=== PATIENT | male | born 1990 | race Caucasian/White ===

== ENCOUNTER → 2020-07-20 14:16 | Outpatient (CLI) | payer OTHER, SELFPAY ==
--- NOTE | 2020-07-20 14:21 | US_ITS ---
PROCEDURE: US TESTICULAR CLINICAL INDICATION: Left testicular/scrotal pain and swelling COMPARISON: No exams were available for comparison FINDINGS: The right testicle has an unremarkable appearance. Right testicle measures 4.3 x 2.9 cm. Blood flow is present. No obvious mass. Unremarkable appearing right epididymis. No hydrocele apparent. The left testicle measures 3.2 by 2.4 cm. No testicular mass is apparent. Blood flow is present. Unremarkable appearing left epididymis. No hydrocele is apparent. There is diffuse heterogeneous echogenicity surrounding the left testicle. No increased blood flow evident within this tissue. This is mostly cephalad to the testicle and somewhat posterior. This could be due to large amount of fat within an inguinal hernia. Other etiologies such as infiltrating tumor from the spermatic cord is not excluded. Suggest CT of the pelvis with both IV and oral contrast for further evaluation. IMPRESSION: 1. No evidence of intra testicular mass or hydrocele. There is bilateral testicular blood flow. 2. Diffuse heterogeneous a colic tissue is along the superior and posterior aspect of the left testicle possibly due to fat from a inguinal hernia. Cannot exclude tumor within the scrotum. Suggest abdomen CT with IV and oral contrast for further evaluation Dictated by: Saleem Landeros MD 07/20/2020 17:32 Saleem Landeros MD in [place] 07/20/2020 17:32
== END ==
PROVIDERS: PCP Urology; Visit Provider Urology
DX: N43.3 Hydrocele, unspecified (principal)
CPT/HCPCS: 76870

== ENCOUNTER → 2020-08-10 10:22 | Outpatient (CLI) | payer OTHER, SELFPAY ==
--- NOTE | 2020-08-10 10:24 | CT_ITS ---
PROCEDURE: CT PELVIS WO/W CON CLINICAL INDICATION: inguinal hernia COMPARISON: No exams were available for comparison TECHNIQUE: Axial images obtained with sagittal and coronal reformats. All CT scans at the facility use one or more dose reduction, viz: automated exposure control, ma/kV adjustment per patient size (including targeted exams where dose is matched to indication, i.e. head), or iterative reconstruction technique. FINDINGS: Bony pelvis: Unremarkable. No acute fracture or dislocation. Hips:Unremarkable. No acute fracture or dislocation. Sacrum/coccyx: Unremarkable as visualized. No acute fracture. Soft tissues:A moderately large left inguinal hernia containing fat and or mesentery extending down into the left hemiscrotum there is no bowel within the hernia. The mouth of the hernia measures approximately 3.7 cm on the coronal sequence. The visualized portion of the ascending and descending colon unremarkable. The rectum appears normal. The urinary bladder is moderately filled with urine and appears normal. The prostate is normal. Other findings: No other pertinent findings IMPRESSION: Large left inguinal hernia containing basically fat only Dictated by: Dr. Fadi Leavitt MD 08/10/2020 12:25 Dr. Fadi Leavitt MD in [place] 08/10/2020 12:25
== END ==
PROVIDERS: PCP Urology; Visit Provider Urology
DX: K40.90 Unilateral inguinal hernia, without obstruction or gangrene, not specified as recurrent (principal)
CPT/HCPCS: 72194; Q9967

== ENCOUNTER → 2020-08-27 11:44 | Outpatient (CLI) | payer OTHER, SELFPAY ==
[2020-08-27 12:42] LABS: Basophils # 0.1 K/mm3 (0-0.2); Basophils % 1.1 % (0.1-2.0); Eosinophils # 0.2 K/mm3 (0.0-0.4); Eosinophils % 2.3 % (0.1-12.0); Hematocrit 48.1 % (42.0-52.0); Hemoglobin 16.1 g/dL (14.1-18.0); Lymphocytes # 1.9 K/mm3 (0.7-4.5); Lymphocytes % 26.7 % (10-50); Mean Corpuscular HGB Conc 33.5 g/dL (31.8-35.4); Mean Corpuscular Hemoglobin 29.6 pg (27.0-31.2); Mean Corpuscular Volume 88.4 fl (80-94); Mean Platelet Volume 8.5 fl (7.4-10.4); Monocytes # 0.5 K/mm3 (0.1-1.0); Monocytes % 7.6 % (1.7-9.3); Neutrophils # 4.4 K/mm3 (1.8-7.8); Neutrophils % 62.3 % (37.0-80.0); Platelet Count 222 K/mm3 (142-424); Red Blood Count 5.43 M/mm3 (4.60-6.20); Red Cell Distribution Width 13.2 % (11.5-17.5); White Blood Count 7.1 K/mm3 (4.8-10.8)
[2020-08-27 13:56] LABS: Anion Gap 13.8 mEq/L (5-15); Blood Urea Nitrogen 13 mg/dl (9-20); Calcium 9.4 mg/dl (8.4-10.2); Carbon Dioxide 27 mmol/L (22.0-30.0); Chloride 107 mmol/L (98-107); Estimated Glomerular Filt Rate 98 ml/min (>60); GFR (African American) 119 ML/MIN (>60); Glucose 100 mg/dl (74-100); Potassium 4.8 mmoL/L (3.5-5.1); Sodium 143 mmol/L (136-145)
== END ==
PROVIDERS: PCP Nurse Practitioner; Visit Provider Surgery
DX: Z01.812 Encounter for preprocedural laboratory examination (principal); Z20.822 Contact with and (suspected) exposure to COVID-19; K45.8 Other specified abdominal hernia without obstruction or gangrene
CPT/HCPCS: 80048; 85025; U0003

== ENCOUNTER 2020-08-30 08:35 | Day surgery (SDC) | payer OTHER, SELFPAY ==
[2020-08-24 16:09] VITALS: BMI 25.7
[2020-08-30] VITALS (12 sets, daily range): BP systolic 115–129; BP diastolic 56–78; PULSE 64–72; RESP 14–18; TEMP 36.4–42.7; O2SAT 91–98
--- NOTE | 2020-08-30 09:54 | HMH.ANESCL ---
[facility] Anesthesia Checklist - Patient Identification Patient Identification: Arm Band - Structural Data Admitted From: Home Planned Operative Procedure/s: Left Inguinal Hernia Repair Consent for Planned Operative Procedure(s) Verified: Yes Verified Documents: Surgical Consent, History and Physical - NPO Status Verified Time NPO: 00:00 - Additional verifications Anesthesia Reactions: Yes ( TROUBLE COMING OUT OF ANESTHESIA ) Hx Blood Transfusions: No Blood Transfusion Reaction: No - Airway Assessment C-Spine Mobility Assessed: Yes (mp2) TMJ Mobility Assessed: Yes Dentition: Good Dentition - Neurological Assessment Level of Consciousness: Awake, Alert - Anesthesia Plan Anesthesia Risk discussed: Yes Anesthesia Plan: Verified ASA Class: II Anesthesia Type: General [facility] History I have reviewed the patient's past medical history: Yes Medical History: Denies:: Cancer, Diabetes Mellitus Type 1, Diabetes Mellitus Type 2, Internal Pacemaker, MRSA, Seizures *Have you ever received a pneumonia vaccine?: No *Have you received a flu vaccine this season?: No Other Medical History: Reports: Arthritis. Denies: Blood Transfusion Reaction Anesthesia experience/problems:: nac Laterality Cases: Bilateral: Tonsillectomy Other Surgeries: No: Pacemaker Amputation: No Fractures: No - *Social History Last grade of school completed: 7th or 8th Smoking Status: Current every day smoker Tobacco Type: cigarettes # Packs/Day (cigarettes): 1 Alcohol Intake: current Alcohol Intake Frequency:: a few times a month Substance Use Type: denies use *Occupational Status:: unemployed Housing: house Household Members: family *Travel in the last 8 weeks: None Family Hx:: Diabetes, Stroke
--- NOTE | 2020-08-30 11:19 | HMH.OPNOTE ---
Date of procedure: 08/30/20 Pre-op Diagnosis:: Large left inguinal hernia Post-op Diagnosis:: Same Procedure performed:: Open repair of large indirect left inguinal hernia with placement of extra-large Bard prefix mesh plug Surgeon:: Richard Tovar MD SOCIAL SERVICES DIRECTOR:: Tiago Hardy Anesthesia: GETJasen Estimated blood loss (mL): 25 Clinical Note:: Patient is a 29-year-old male from [facility] referred by Dr. Perez for left inguinal hernia. Patient was a self-referral to see Dr. Perez for left scrotal swelling. He underwent ultrasound of the scrotum which revealed no evidence of any hydrocele. It was recommended he have a CT scan which was performed which revealed a large left inguinal hernia containing fat. Patient states that he has had this since he was 7 years old. It has increased in size. He has some discomfort. Of note, he previously underwent right inguinal hernia repair when he was [age] years old. He has no primary care physician. Patient was seen in the office and found to have very large left inguinal hernia. Options were discussed. He wished to pursue open repair. Operative findings:: Patient had a very large indirect hernia centrally resembling a communicating hydrocele Operative note:: Patient was taken to the operating room. He was positioned in supine position. General anesthesia was induced via endotracheal tube. Gracia catheter was placed. Lower abdomen and scrotal area were prepped and draped in the standard surgical fashion. Oblique incision was made in the left inguinal area superior to landmarks identifying the inguinal ligament. Dissection was carried down through subcutaneous tissues and Kayli's fascia using electrocautery. External oblique muscle was cleaned free of extraneous tissues. The external Bleich muscle was opened along the length of its fibers. The inguinal nerve was identified and preserved. Cord structures were dissected free from the floor the inguinal canal and encircled with a Jag drain. Prolonged dissection was carried out. He had such an extended hernia sac to the testicle that essentially resembled almost a communicating hydrocele. This was able to be dissected free with prolonged effort. It was opened. Was dissected free from the cord structures. The hernia sac was highly ligated with a 2-0 Vicryl pursestring. Extraneous peritoneum of the hernia sac was excised and sent off as specimen. An extra-large Bard prefix mesh plug was inserted into the region of the internal ring laterally at the site of the hernia. This was secured with several interrupted 2-0 Vicryl sutures to the shelving edge of the inguinal ligament and to the transversalis muscle fascia. Onlay mesh was then sewn into position of the inguinal floor securing it to Robin's ligament and the shelving edge of the inguinal ligament with a running 2-0 PDS suture. It was secured superomedially to the fascia with several interrupted 2-0 PDS horizontal mattress sutures. The 2 tails of the mesh were secured to 1 another with a couple of interrupted 2-0 PDS to reconstruct the internal ring. The cord structures and ilioinguinal nerve were then returned to normal anatomic position. Local anesthetic was infiltrated deeply and then into the subcutaneous tissues as well as for an inguinal nerve block. Irrigation was performed. There appeared to be good hemostasis. External Bleich muscle was closed over the cord structures with a running 2-0 Vicryl. Kayli's fascia was closed with running 2-0 Vicryl. Skin was closed with 3-0 strata fix in a running subcuticular fashion. Clean dry sterile dressing was applied. Condition: stable Disposition: PACU Specimens:: Hernia sac Complications:: None immediately apparent
--- NOTE | 2020-08-30 11:21 | P.PN_ITS ---
[facility] Anesthesia Record Part I Intake, IV Amount: 1,300 Estimated blood loss (mL): 10 Urine output (mL): 400 Blood Pressure: 129/56 SaO2: 91 Pulse Rate: 67 Respiratory Rate: 16 Temperature: 99 F Patient is:: Drowsy, Stable Stable to PACU at:: 11:20
[2020-08-30 12:56] LABS: Microscopic,Cath URINE MICROSCOPIC (MICROSCOPIC)
[2020-08-30 13:00] LABS: Appearance,Urine/Cath CLEAR (Clear); Bilirubin,Cath Negative (Negative); Blood, Urine/Cath Negative (Negative); Color,Urine/Cath YELLOW (Yellow); Glucose,Urine/Cath (UA) Negative (Negative); Ketones,Urine/Cath Negative (Negative); Leukocyte Esterase,Cath Negative (Negative); Nitrate,Cath Negative (Negative); Protein,Urine/Cath Negative (Negative); Specific Gravity, Urine/Cath 1.025 (1.005-1.030); Urobilinogen,Cath 0.2 EU/dl (0.2)
--- NOTE | 2020-08-30 17:46 | HMH.ANESII ---
[facility] Anesthesia Record Part II Discharge Time: 11:52 Destination: Surgical Day Care (OP Surgery) PACU nurse assessment reviewed?: Yes Patient Condition:: Good Anesthesia Complications:: None Swallowing reflex intact?: Yes Cyanosis?: No Blood Pressure: 119/68 Pulse Rate: 64 Temperature: 98 F Mental Status: Alert & Oriented Pain level:: 0 Nausea and/or vomitting:: None Intake, IV Amount: 0
== END 2020-08-30 12:25 | disposition home or self-care (01) ==
LOC: OR 08:36
PROVIDERS: PCP Nurse Practitioner; Visit Provider Surgery
PROC: (CPT 49505; principal; 2020-08-30 11:00)
DX: K40.90 Unilateral inguinal hernia, without obstruction or gangrene, not specified as recurrent (principal); M19.90 Unspecified osteoarthritis, unspecified site; Z72.0 Tobacco use; Z83.3 Family history of diabetes mellitus; Z82.3 Family history of stroke; Z88.5 Allergy status to narcotic agent
CPT/HCPCS: 49505; 81001; 96374; J2405; J2710

== ENCOUNTER → 2020-10-18 13:47 | Outpatient (CLI) | payer OTHER, SELFPAY ==
--- NOTE | 2020-10-18 13:47 | US_ITS ---
PROCEDURE: US TESTICULAR CLINICAL INDICATION: Testicular swelling COMPARISON: US US TESTICULAR from 07/20/2020 FINDINGS: Right testicle is 4.7 x 1.9 x 2.5 cm. No mass, hydrocele, or spermatocele evident on the right. There is blood flow within the right testicle. Left testicle is 3 x 2 x 2.6 cm with blood flow and no obvious testicular mass. There is a complex hydrocele with multiple septations. The hydrocele measures approximately 7 x 6 cm. IMPRESSION: Large complex left hydrocele with internal septations. Dictated by: Saleem Landeros MD 10/18/2020 17:25 Saleem Landeros MD in [place] 10/18/2020 17:25
== END ==
LOC: RAD 13:47
PROVIDERS: PCP Nurse Practitioner; Visit Provider Surgery
DX: R60.9 Edema, unspecified (principal)
CPT/HCPCS: 76870

== ENCOUNTER 2020-10-23 09:26 | Emergency (ER) | payer OTHER, SELFPAY ==
[2020-10-23 09:30] VITALS: BP 128/78; PULSE 84; RESP 18; TEMP 36.7; O2SAT 96; BMI 23.6
[2020-10-23 10:05] VITALS: BP 128/78; PULSE 84; RESP 18; TEMP 36.7; O2SAT 96
--- NOTE | 2020-10-23 10:06 | HMH.EDUTC ---
[facility] Disposition Clinical Impression: Back pain with left-sided sciatica Disposition: Home, Self-Care Condition on Discharge: Good Instructions: Low Back Pain, Exercise May Reduce Risk of Low Back Pain, DI for Back Pain With Sciatica Additional Instructions: rest Ice with cold pack for 20 minutes remove may repeat for comfort every hour Ibuprofen every 6 hours as needed for pain or inflammation. If needs something more you can take Tylenol every 4 hours as needed as long as her primary care has told he was okayed for you to take both. If improving any do not need to follow-up you can bring begin exercising 2-3 weeks after injury. Follow-up immediately if new or worsening symptoms or no noticeable improvement over the next 3-5 days. call pcp for appointment Prescriptions: predniSONE [Prednisone 20mg Tab] 20 mg PO BID #10 tab Transmission Status: Pending to [id number] Referrals: Yas Bojorquez MD [Primary Care Provider] - Time of Disposition: 10:09 Medical Decision Making - Dante Inquiry Pt receiving controlled substance: No Orders (Tests/Meds): ED MEDICATIONS Discontinued Medications Generic Name Dose Route Start Last Admin Trade Name Kyle PRN Reason Stop Dose Admin Dexamethasone Sodium Phosphate 4 mg 10/23/20 09:46 10/23/20 09:59 Dexamethasone 4mg/Ml 1ml Vial IM 10/23/20 09:47 4 mg ONCE ONE Administration Ketorolac Tromethamine 15 mg 10/23/20 09:46 10/23/20 09:59 Ketorolac 30mg/Ml Vial IM 10/23/20 09:47 15 mg ONCE ONE Administration [facility] HPI - General Chief complaint: Urgent Treatment Center Stated complaint: back pain, no accident Time Seen by Provider: 10/23/20 10:06 Mode of Arrival: Ambulatory Source of Information: Patient Limitations: No Limitations - History of Present Illness Provider Complaint: 29 yr old male presents for low back pain that radiates down left leg. pt states he was pushing and pulling alot yesterday and woke up this am with the pain. - Related Data Previous Rx's Medication Instructions Recorded predniSONE [Prednisone 20mg 20 mg PO BID #10 tab 10/23/20 Tab] Allergies Allergy/AdvReac Type Severity Reaction Status Date / Time morphine Allergy Mild Verified 10/21/20 13:46 [facility] History - Hepatitis A Screen Attestation statement:: This patient has been screened for Hepatitis A risk factors. I have reviewed the patient's past medical history: Yes Medical History: Denies:: Cancer, Diabetes Mellitus Type 1, Diabetes Mellitus Type 2, Internal Pacemaker, MRSA, Seizures Other Medical History: Reports: Arthritis. Denies: Blood Transfusion Reaction Laterality Cases: Bilateral: Tonsillectomy Other Surgeries: Yes: No Previous Surgery, Hernia Repair. No: Pacemaker Amputation: No Fractures: No - Social History Smoking Status: Current every day smoker Tobacco Type: cigarettes # Packs/Day (cigarettes): 1 Alcohol Intake: current Alcohol Intake Frequency:: a few times a month Substance Use Type: denies use Occupational Status: unemployed Housing: house Household Members: family Family Hx:: Diabetes, Stroke ROS Obtained: Yes Systems reviewed as appropriate & no additional complaints - Constitutional Constitutional: Reports system reviewed and no additional complaints, except as docu, Denies fatigue - Eyes Eyes: Reports system reviewed and no additional complaints, except as docu, Denies blurry vision - ENT Ears, Nose, Mouth, and Throat: Reports system reviewed and no additional complaints, except as docu, Denies bleeding gums - Cardiovascular Cardiovascular: Reports system reviewed and no additional complaints, except as docu, Denies chest pain - Respiratory Respiratory: Reports system reviewed and no additional complaints, except as docu, Denies chest congestion - Gastrointestinal Gastrointestingal: Reports: system reviewed and no additional complaints, except as docu. Denies: abdominal pain - Genitou
== END 2020-10-23 10:08 | disposition home or self-care (01) ==
PROVIDERS: Emergency Provider Nurse Practitioner Family; PCP Nurse Practitioner
DX: M54.42 Lumbago with sciatica, left side (principal); F17.210 Nicotine dependence, cigarettes, uncomplicated
CPT/HCPCS: 96372; 99202; G0463

== ENCOUNTER 2020-11-09 09:42 | Emergency (ER) | payer OTHER, SELFPAY ==
[2020-11-09 09:46] VITALS: BP 136/79; PULSE 74; RESP 16; TEMP 36.7; O2SAT 97; BMI 24.4
--- NOTE | 2020-11-09 10:03 | HMH.EDUTC ---
[facility] Disposition Clinical Impression: Bilateral hand pain, Encounter to obtain excuse from work Disposition: Home, Self-Care Condition on Discharge: Good Instructions: DI for Hand Pain Additional Instructions: Take over the counter Motrin and/or Tylenol as directed on package for pain Soak hands in Warm water and epson salt Get and wear compression gloves as was recommended Follow up with your Family Doctor for further evaluation and examination Return if needed Straight to ER if any life threatening symptoms Referrals: Yas Bojorquez MD [Primary Care Provider] - As needed Forms: Work/School Release Time of Disposition: 10:13 Medical Decision Making - Dante Inquiry Pt receiving controlled substance: No Dante was queried for this patient: No Vital Signs: 11/09/20 09:46 11/09/20 10:45 Temperature 98.1 F 98.1 F Temperature Source Oral Pulse Rate 74 Pulse Rate [Left] 74 Respiratory Rate 16 16 Blood Pressure 136/79 Blood Pressure [Right Arm] 136/79 Blood Pressure Mean [Right Arm] 98 02 Sat by Pulse Oximetry 97 Medical Decision Narrative: Patient reports that he took Ibuprofen earlier and it has helped some Discussed xrays of hands and patient declined Discussed labs to R/O gout and patient declined state that he needs a note for work due to unable to work this morning due to having pain in his hands that was better after taking medication discussed with patient and recommended follow up with PCP if symptoms persist or worsen and get the compression gloves that was recommended by work and return if needed/straight to ER if any life threatening symptoms [facility] HPI - General Stated complaint: hand pain Time Seen by Provider: 11/09/20 10:03 Mode of Arrival: Ambulatory Source of Information: Patient Limitations: No Limitations Description of Symptoms (Recalled from Triage Doc. by RN): pt c/o bilateral hand pain. 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 States that the vibration from the grinder set up operator jig he thinks has flared up arthrititis in his hands and he woke up this morning with pain in his hands and was unable to go to work States that he had to come in and get seen for a work note State that they told him to get compression gloves and that may help but he hasnt got them yet Denies known injury - Related Data Previous Rx's Medication Instructions Recorded predniSONE [Prednisone 20mg 20 mg PO BID #10 tab 10/23/20 Tab] Allergies Allergy/AdvReac Type Severity Reaction Status Date / Time morphine Allergy Mild Verified 10/21/20 13:46 - Worker's Comp Is this a Worker's Comp case?: No [facility] History - Hepatitis A Screen Drug use history?: No High risk sexual behaviors?: No History of sexually transmitted infection?: No Currently employed?: No Childcare worker?: No Do you have indoor plumbing?: Yes Do you have electricity?: Yes Attestation statement:: This patient has been screened for Hepatitis A risk factors. I have reviewed the patient's past medical history: Yes Medical History: Denies:: Cancer, Diabetes Mellitus Type 1, Diabetes Mellitus Type 2, Internal Pacemaker, MRSA, Seizures Other Medical History: Reports: Arthritis. Denies: Blood Transfusion Reaction Laterality Cases: Bilateral: Tonsillectomy Other Surgeries: Yes: No Previous Surgery, Hernia Repair. No: Pacemaker Amputation: No Fractures: No - Social History Smoking Status: Current every day smoker Tobacco Type: cigarettes # Packs/Day (cigarettes): 1 Alcohol Intake: current Alcohol Intake Frequency:: a few times a month Substance Use Type:
[2020-11-09 10:45] VITALS: BP 136/79; PULSE 74; RESP 16; TEMP 36.7
--- NOTE | 2020-11-09 10:46 | PC.NURSE ---
pt states he just needs a work note. pt denies xrays.
== END 2020-11-09 10:45 | disposition home or self-care (01) ==
PROVIDERS: Emergency Provider Nurse Practitioner; PCP Nurse Practitioner
DX: M79.641 Pain in right hand (principal); M79.642 Pain in left hand; Z02.89 Encounter for other administrative examinations; F17.210 Nicotine dependence, cigarettes, uncomplicated
CPT/HCPCS: 99202; G0463

== ENCOUNTER 2021-01-29 16:39 | Emergency (ER) | payer OTHER, SELFPAY ==
[2021-01-29 17:00] VITALS: BP 116/85; PULSE 87; RESP 19; TEMP 37; O2SAT 99; BMI 23.7
--- NOTE | 2021-01-29 17:09 | HMH.EDUTC ---
[facility] Disposition Clinical Impression: Back pain with left-sided sciatica Disposition: Home, Self-Care Condition on Discharge: Good Instructions: Exercise May Reduce Risk of Low Back Pain, Low Back Pain, DI for Low Back Pain Prescriptions: predniSONE [Prednisone 20mg Tab] 20 mg PO BID #10 tab Transmission Status: P[facility] to [facility] Referrals: Yas Bojorquez MD [Primary Care Provider] - Time of Disposition: 17:18 Medical Decision Making - Dante Inquiry Pt receiving controlled substance: No Vital Signs: 01/29/21 17:00 Temperature 98.6 F Temperature Source Oral Pulse Rate [Right Brachial] 87 Respiratory Rate 19 Blood Pressure [Right Arm] 116/85 Blood Pressure Mean [Right Arm] 95 Blood Pressure Source [Right Arm] Automatic Cuff Blood Pressure Position [Right Arm] Sitting 02 Sat by Pulse Oximetry 99 [facility] HPI - General Chief complaint: Urgent Treatment Center Stated complaint: possible sciata nerve Time Seen by Provider: 01/29/21 17:09 Source of Information: Patient Description of Symptoms (Recalled from Triage Doc. by RN): PT STATES HE IS HAVING LEFT SIDE SCIATIC NERVE PAIN THAT IS RADIATIONG DOWN LEFT LEG. STARTED YESTERDAY. HEENT Symptoms (Recalled from RN notes): No Resp Symptoms (Recalled from RN notes): No Skin Symptoms (Recalled from RN notes): No MS Symptoms (Recalled from RN notes): Yes Functional Status (Recalled from RN notes): WNL - History of Present Illness Provider Complaint: 30 yr old male presnets for low back pain with pain radiating down left leg. pt states he has scatica freq but its usually on the rt side. no loss of bowel or bladder - Related Data Previous Rx's Medication Instructions Recorded predniSONE [Prednisone 20mg 20 mg PO BID #10 tab 01/29/21 Tab] Allergies Allergy/AdvReac Type Severity Reaction Status Date / Time morphine Allergy Mild Verified 01/17/21 11:40 - Worker's Comp Is this a Worker's Comp case?: No [facility] History - Hepatitis A Screen Drug use history?: No High risk sexual behaviors?: No History of sexually transmitted infection?: No Currently employed?: No Childcare worker?: No Do you have indoor plumbing?: Yes Do you have electricity?: Yes Attestation statement:: This patient has been screened for Hepatitis A risk factors. I have reviewed the patient's past medical history: Yes Medical History: Reports:: Hiatal Hernia Denies:: Cancer, Diabetes Mellitus Type 1, Diabetes Mellitus Type 2, Internal Pacemaker, MRSA, Seizures Other Medical History: Reports: Arthritis. Denies: Blood Transfusion Reaction Laterality Cases: Bilateral: Tonsillectomy Other Surgeries: Yes: No Previous Surgery, Hernia Repair. No: Pacemaker Amputation: No Fractures: No - Social History Smoking Status: Current every day smoker Tobacco Type: cigarettes # Packs/Day (cigarettes): 1 Alcohol Intake: never Alcohol Intake Frequency:: a few times a month Substance Use Type: denies use Occupational Status: employed Housing: house Household Members: family Family Hx:: Diabetes, Stroke ROS Obtained: Yes Systems reviewed as appropriate & no additional complaints - Constitutional Constitutional: Reports system reviewed and no additional complaints, except as docu, Denies body ache, Denies poor appetite - Eyes Eyes: Reports system reviewed and no additional complaints, except as docu, Denies blurry vision - ENT Ears, Nose, Mouth, and Throat: Reports system reviewed and no additional complaints, except as docu, Denies bleeding gums - Cardiovascular Cardiovascular: Reports system reviewed and no additional complaints, except as docu, Denies chest pain - Respiratory Respiratory: Reports system reviewed and no additional complaints, except as docu, Denies change in phlegm color - Gastrointestinal Gastrointestingal: Reports: system reviewed and no additional complaints, except as docu. Denies: belching - Musculoskeletal Musculoskeletal: Repor
[2021-01-29 17:16] VITALS: BP 116/85; PULSE 87; RESP 19; TEMP 37; O2SAT 99
== END 2021-01-29 17:27 | disposition home or self-care (01) ==
PROVIDERS: Emergency Provider Nurse Practitioner Family; PCP Nurse Practitioner
DX: M54.42 Lumbago with sciatica, left side (principal); F17.210 Nicotine dependence, cigarettes, uncomplicated; Z88.5 Allergy status to narcotic agent
CPT/HCPCS: 96372; 99202; G0463

== ENCOUNTER 2021-03-20 20:50 | Emergency (ER) | payer OTHER, SELFPAY ==
[2021-03-20 20:52] VITALS: BP 121/88; PULSE 109; RESP 14; TEMP 37.1; O2SAT 95; BMI 24.4
[2021-03-20 21:22] VITALS: BMI 23.7
--- NOTE | 2021-03-20 21:39 | HMH.EDSKAF ---
ED Disposition Clinical Impression: Cellulitis Qualifiers: Site of cellulitis: extremity Site of cellulitis of extremity: upper extremity Laterality: right Qualified Code(s): L03.113 - Cellulitis of right upper limb Otitis media Qualifiers: Otitis media type: unspecified Chronicity: acute Qualified Code(s): H66.90 - Otitis media, unspecified, unspecified ear Disposition: Home, Self-Care Condition on Discharge: Good Instructions: DI for Cellulitis -- Adult Additional Instructions: fluids and advil/tyenol and see pcp for follow up Prescriptions: cephALEXin [cephALEXin 500mg capsule*] 500 mg PO TID #30 cap Transmission Status: P[facility] to [facility] clindamycin HCL [Clindamycin HCl] 300 mg PO TID #30 cap Transmission Status: Pending to [facility] Referrals: Yas Bojorquez MD [Primary Care Provider] - - Critical Care Critical Care Time: No Attestation: On 03/20/21, the high probability of a clinically significant, sudden or life threatening deterioration of the following system(s) required my full and direct attention, intervention and personal management. The time I documented below is in addition to time spent performing reported procedures but includes the following listed in this critical care notation. Medical Decision Making - Medical Records Medical records reviewed: Yes: I reviewed the patient's medical records. - Dante Inquiry Pt receiving controlled substance: No Vital Signs: 03/20/21 20:52 03/21/21 00:27 Temperature 98.8 F 98.5 F Temperature Source Oral Oral Pulse Rate 90 Pulse Rate [Right] 109 H Respiratory Rate 14 20 Blood Pressure 125/82 Blood Pressure [Right Arm] 121/88 Blood Pressure Mean [Right Arm] 99 Blood Pressure Source [Right Arm] Automatic Cuff 02 Sat by Pulse Oximetry 95 Oxygen Delivery Method Room Air Room Air - Lab Data Lab results reviewed: Yes: I reviewed the patient's lab results. Lab Results 03/20/21 21:30: WBC 14.4 H, RBC 5.24, Hgb 15.8, Hct 46.5, MCV 88.8, MCH 30.2, MCHC 34.1, RDW 13.5, Plt Count 299, MPV 7.7, Neut % (Auto) 77.6, Lymph % (Auto) 13.7, Harney % (Auto) 6.2, Eos % (Auto) 0.8, Baso % (Auto) 1.7, Neut # (Auto) 11.2 H, Lymph # (Auto) 2.0, Harney # (Auto) 0.9, Eos # (Auto) 0.1, Baso # (Auto) 0.2, ESR 42 H 03/20/21 21:30: Sodium 141, Potassium 4.0, Chloride 106, Carbon Dioxide 24, Anion Gap 15.0, BUN 10, Creatinine 0.90, Estimated Creat Clear 136, Estimated GFR 98, Est GFR ( Amer) 118, Glucose 99, Calcium 9.8, Total Bilirubin 0.4, AST 42, ALT 64, Alkaline Phosphatase 113, C-Reactive Protein 22.2 H, Total Protein 8.1, Albumin 5.0, Globulin 3.1, Albumin/Globulin Ratio 1.6, Procalcitonin 0.072 Result diagrams: 03/20/21 21:30 03/20/21 21:30 Orders (Tests/Meds): ED MEDICATIONS Generic Name Dose Route Start Last Admin Trade Name Freq PRN Reason Stop Dose Admin Miscellaneous 1 each 03/20/21 21:30 03/20/21 22:15 Vancomycin Consult Request * 04/19/21 21:29 1 each [facility] Administration Discontinued Medications Generic Name Dose Route Start Last Admin Trade Name Freq PRN Reason Stop Dose Admin Vancomycin/PEG/NADA/Lysine/Water 1.75 gm in 350 mls @ 175 mls/hr 03/20/21 22:15 03/20/21 22:15 Vancomycin 1.75gm/350ml (Peg) Premix IV 03/21/21 00:14 175 mls/hr ONCE ONE Administration Ketorolac Tromethamine 30 mg 03/20/21 21:24 03/20/21 22:15 Ketorolac 30mg/Ml Vial IV 03/20/21 21:25 30 mg ONCE ONE Administration ORDERS Category Date Time Status Blood Culture Stat Micro 03/20/21 21:30 Received Medical Decision Narrative: has cellulitis lt elbow with from and will treat with abx and ask pt to see pcp for follow up Skin/Abscess/FB HPI - General Chief complaint: Skin/Abscess/Foreign Body Stated complaint: Bite on right elbow red and swollen,Right ear pain Time Seen by Provider: 03/20/21 21:00 Mode of Arrival: Family Vehicle Source of Information: Patient, Medical Record
[2021-03-20 21:50] LABS: Basophils # 0.2 K/mm3 (0-0.2); Basophils % 1.7 % (0.1-2.0); Eosinophils # 0.1 K/mm3 (0.0-0.4); Eosinophils % 0.8 % (0.1-12.0); Hematocrit 46.5 % (42.0-52.0); Hemoglobin 15.8 g/dL (14.1-18.0); Lymphocytes % 13.7 % (10-50); Mean Corpuscular HGB Conc 34.1 g/dL (31.8-35.4); Mean Corpuscular Hemoglobin 30.2 pg (27.0-31.2); Mean Corpuscular Volume 88.8 fl (80-94); Mean Platelet Volume 7.7 fl (7.4-10.4); Monocytes # 0.9 K/mm3 (0.1-1.0); Monocytes % 6.2 % (1.7-9.3); Neutrophils # 11.2 K/mm3 (1.8-7.8); Neutrophils % 77.6 % (37.0-80.0); Platelet Count 299 K/mm3 (142-424); Red Blood Count 5.24 M/mm3 (4.60-6.20); Red Cell Distribution Width 13.5 % (11.5-17.5); White Blood Count 14.4 K/mm3 (4.8-10.8)
[2021-03-20 22:04] LABS: Alanine Aminotransferase 64 U/L (12-78); Albumin/Globulin Ratio 1.6 (1.1-1.8); Alkaline Phosphatase 113 U/L (38-126); Aspartate Amino Transferase 42 U/L (17-59); Bilirubin,Total 0.4 mg/dl (0.2-1.3); Blood Urea Nitrogen 10 mg/dl (9-20); Calcium 9.8 mg/dl (8.4-10.2); Carbon Dioxide 24 mmol/L (22.0-30.0); Chloride 106 mmol/L (98-107); Creatinine Clearance Estimated 136 mL/min (50-200); Estimated Glomerular Filt Rate 98 ml/min (>60); GFR (African American) 118 ML/MIN (>60); Globulin 3.1 g/dL (1.3-3.2); Glucose 99 mg/dl (74-100); Sodium 141 mmol/L (136-145); Total Protein,Serum 8.1 g/dl (6.3-8.2)
[2021-03-20 22:09] LABS: C-Reactive Protein 22.2 mg/L (0-4)
[2021-03-20 22:23] LABS: Procalcitonin 0.072 ng/mL (0.0-2.0)
[2021-03-20 23:07] LABS: Erythrocyte Sedimentation Rate 42 mm/hr (0-15)
[2021-03-21 00:27] VITALS: BP 125/82; PULSE 90; RESP 20; TEMP 36.9; O2SAT 96
== END 2021-03-21 00:53 | disposition home or self-care (01) ==
PROVIDERS: Emergency Provider Emergency Medicine; PCP Nurse Practitioner
DX: L03.113 Cellulitis of right upper limb (principal); H66.91 Otitis media, unspecified, right ear; F17.210 Nicotine dependence, cigarettes, uncomplicated
CPT/HCPCS: 80053; 84145; 85025; 85651; 86140; 87040; 96365; 99283

== ENCOUNTER 2021-05-29 14:40 | Emergency (ER) | payer OTHER, SELFPAY ==
[2021-05-29 16:00] VITALS: BP 119/78; PULSE 72; RESP 19; TEMP 36.8; O2SAT 97; BMI 24.7
[2021-05-29 16:16] LABS: Adenovirus,PCR Not Detected (NotDetected); Bordetella Pertussis Not Detected (NotDetected); Chlamydophila Pneumoniae, PCR Not Detected (NotDetected); Coronavirus 19, PCR Not Detected (NotDetected); Coronavirus 229E Not Detected (NotDetected); Coronavirus NL63 Not Detected (NotDetected); Coronavirus OC43 Not Detected (NotDetected); Coronovirus HKU1,PCR Not Detected (NotDetected); Human Metapneumovirus Not Detected (NotDetected); Influenza A, PCR Not Detected (NotDetected); Influenza AH1, 2009 Not Detected (NotDetected); Influenza AH1, PCR Not Detected (NotDetected); Influenza AH3,PCR Not Detected (NotDetected); Influenza B, PCR Not Detected (NotDetected); Mycoplasma Pneumoniae, PCR Not Detected (NotDetected); Parainfluenza 1, PCR Not Detected (NotDetected); Parainfluenza 2, PCR Not Detected (NotDetected); Parainfluenza 3, PCR Not Detected (NotDetected); Parainfluenza 4, PCR Not Detected (NotDetected); Respiratory Syncytial Virus Not Detected (NotDetected); Rhinovirus/Enterovirus Not Detected (NotDetected)
[2021-05-29 16:22] LABS: UTC Influenza A Antigen Negative (Negative)
[2021-05-29 16:23] LABS: UTC Influenza B Antigen Negative (Negative)
[2021-05-29 16:32] LABS: Strep Scrn Group A (Rapid) Negative (Negative)
--- NOTE | 2021-05-29 17:06 | HMH.EDUTC ---
[facility] [place] Impression: Bronchitis, Viral syndrome Disposition: Home, Self-Care Condition on Discharge: Good Instructions: DI for Acute Bronchitis, DI for Viral Syndrome Additional Instructions: Drink plenty of fluids. Take tylenol or ibuprofen for pain or fever. Take the medications as directed. Follow up with your regular doctor. GO TO THE ER FOR ANY WORSENING SYMPTOMS Prescriptions: Brompheniramine/Pseudoephed/Dm [Bromfed Dm Cough Syrup] 5 ml PO Q6HP PRN #240 ml PRN Reason: Cough Transmission Status: Received by [facility] methylPREDNISolone [Medrol] 4 mg PO DIRECTED 6 Days #21 packet Transmission Status: Received by [facility] Azithromycin [Z-Jluis 250mg Tab*] 250 mg PO UD DOSE PK #6 tab Transmission Status: Received by [facility] Referrals: Provider,Referral, MD [Primary Care Provider] - Forms: Work/School Release Time of Disposition: 17:11 Medical Decision Making - Medical Records Medical records reviewed: No: I reviewed the patient's medical records. - Dante Inquiry Pt receiving controlled substance: No Vital Signs: 05/29/21 16:00 05/29/21 17:13 Temperature 98.3 F 98.3 F Temperature Source Oral Pulse Rate 72 Pulse Rate [Right Brachial] 72 Respiratory Rate 19 19 Blood Pressure 119/78 Blood Pressure [Right Arm] 119/78 Blood Pressure Mean [Right Arm] 91 Blood Pressure Source [Right Arm] Automatic Cuff Blood Pressure Position [Right Arm] Sitting 02 Sat by Pulse Oximetry 97 Oxygen Delivery Method Room Air - Lab Data Lab Results 05/29/21 16:11: Chlamy pneumoniae PCR Not detected, Adenovirus (PCR) Not detected, B. pertussis DNA (PCR) Not detected, Coronavirus OC43 (PCR) Not detected, Coronavirus HKU1 (PCR) Not detected, Coronavirus 229E (PCR) Not detected, SARS-CoV-2 (PCR) Not detected, Coronavirus NL63 (PCR) Not detected, Human Metapneumovir PCR Not detected, Influenza A (H1) PCR Not detected, Influ A (H1N1/09) PCR Not detected, Influenza A (H3) PCR Not detected, Influenza Type A (PCR) Not detected, Influenza Type B (PCR) Not detected, M. pneumoniae (PCR) Not detected, Parainfluenza 1 (PCR) Not detected, Parainfluenza 2 (PCR) Not detected, Parainfluenza 3 (PCR) Not detected, Parainfluenza 4 (PCR) Not detected, RSV (PCR) Not detected, Entero/Rhino (PCR) Not detected 05/29/21 16:11: Group A Strep Rapid Negative 05/29/21 16:11: Influenza Type A Ag Negative, Influenza Type B Ag Negative [facility] [place] - General Stated complaint: sore throat, LAGOS Time Seen by Provider: 05/29/21 16:30 Mode of Arrival: Ambulatory Source of Information: Patient Limitations: No Limitations Description of Symptoms (Recalled from Triage Doc. by RN): PATIENT C/O FEVER, CHILLS, AND VOMITING X 2 DAYS HEENT Symptoms (Recalled from RN notes): No Resp Symptoms (Recalled from RN notes): No Skin Symptoms (Recalled from RN notes): No MS Symptoms (Recalled from RN notes): No Functional Status (Recalled from RN notes): WNL - History of Present Illness Provider Complaint: He c/o body ache, chills, dry cough and feeling bad for the past 2 days. - Related Data Home Medications Medication Instructions Recorded Confirmed Fluoxetine HCl [Prozac 10mg 10 mg PO DAILY 03/21/21 04/03/21 Capsule] OLANZapine [Zyprexa] 5 mg PO HS 03/21/21 04/03/21 Previous Rx's Medication Instructions Recorded Azithromycin [Z-Jluis 250mg Tab*] 250 mg PO UD DOSE PK #6 tab 05/29/21 Brompheniramine/Pseudoephed/Dm 5 ml PO Q6HP PRN #240 ml 05/29/21 [Bromfed Dm Cough Syrup] methylPREDNISolone [Medrol] 4 mg PO DIRECTED 6 Days #21 05/29/21 packet Allergies Allergy/AdvReac Type Severity Reaction Status Date / Time morphine Allergy Mild Verified 04/03/21 13:39 - Worker's Comp Is this a Worker's Comp case?: No [facility] History - Hepatitis A Screen Drug use history?: No High risk sexual behaviors?: No History of sexually transmitted infection?: No Currently employed?: N
[2021-05-29 17:13] VITALS: BP 119/78; PULSE 72; RESP 19; TEMP 36.8; O2SAT 97
== END 2021-05-29 17:14 | disposition home or self-care (01) ==
PROVIDERS: Emergency Provider Nurse Practitioner Family
DX: J20.9 Acute bronchitis, unspecified (principal); B34.9 Viral infection, unspecified
CPT/HCPCS: 87430; 87581; 87632; 87798; 87804; 99213; C9803; G0463; U0003; U0005

== ENCOUNTER → 2022-11-29 23:14 | Outpatient (CLI) | payer MEDICARE, OTHER, SELFPAY ==
[2022-11-29 19:11] LABS: Alanine Aminotransferase 35 U/L (12-78); Albumin Level 4.9 g/dl (3.5-5.0); Albumin/Globulin Ratio 1.6 (1.1-1.8); Alkaline Phosphatase 84 U/L (38-126); Anion Gap 16.1 mEq/L (5-15); Aspartate Amino Transferase 38 U/L (17-59); Bilirubin,Total 0.6 mg/dl (0.2-1.3); Blood Urea Nitrogen 8 mg/dl (9-20); Calcium 9.7 mg/dl (8.4-10.2); Carbon Dioxide 24 mmol/L (22.0-30.0); Chloride 105 mmol/L (98-107); Cholesterol 183 mg/dl (140-200); Estimated Glomerular Filt Rate 111 ml/min (>60); GFR (African American) 134 ML/MIN (>60); Glucose 99 mg/dl (74-100); HDL Cholesterol 23 mg/dl (40-60); Potassium 4.1 mmoL/L (3.5-5.1); Sodium 141 mmol/L (136-145); Total Protein,Serum 7.9 g/dl (6.3-8.2); Triglycerides 201 mg/dl (30-150); VLDL Cholesterol 40 mg/dL (0-40)
[2022-11-29 19:26] LABS: 25-OH Vitamin D, Total 34.7 ng/mL (30-100)
[2022-11-29 19:30] LABS: Direct LDL Cholesterol 117.93 mg/dL (100-129)
[2022-11-29 19:40] LABS: Thyroid Stimulating Hormone 0.76 uIU/mL (0.465-4.68)
[2022-11-29 19:57] LABS: Vitamin B12 243 pg/mL (239-931)
== END ==
PROVIDERS: PCP Internal Medicine; Visit Provider Internal Medicine
DX: Z00.00 Encounter for general adult medical examination without abnormal findings (principal); Z68.22 Body mass index [BMI] 22.0-22.9, adult; F99 Mental disorder, not otherwise specified; Z72.0 Tobacco use; E78.1 Pure hyperglyceridemia
CPT/HCPCS: 80053; 80061; 82306; 82607; 84443

== ENCOUNTER 2022-12-02 16:39 | Emergency (ER) | payer MEDICARE, OTHER, SELFPAY ==
[2022-12-02 16:49] VITALS: BP 134/75; PULSE 91; RESP 20; TEMP 36.7; O2SAT 99; BMI 21.3
--- NOTE | 2022-12-02 16:49 | XR_ITS ---
PROCEDURE INFORMATION: Exam: XR Right Toe(s) Exam date and time: 12/02/2022 4:49 PM Age: 32 years old Clinical indication: Toes; Patient HX: Stubbed toe, right great toe pain TECHNIQUE: Imaging protocol: Radiologic exam of the right toes. Views: Minimum 2 views. COMPARISON: No relevant prior studies available. FINDINGS: Bones/joints: Mildly displaced fracture of the tuft of the 1st distal phalanx. No other fracture. No dislocation. No significant arthropathy. Soft tissues: Distal 1st toe soft tissue swelling. IMPRESSION: 1. Mildly displaced fracture of the tuft of the 1st distal phalanx. 2. Distal 1st toe soft tissue swelling.
--- NOTE | 2022-12-02 17:35 | ED_ITS ---
Discharge Plan Disposition Patient Disposition: Home, Self-Care Chief Complaint: PAIN Referrals Follow up/Referrals: Des Ray MD [Primary Care Provider] - See instructions Activity Restrictions/Add. Instructions Additional Instructions/Restrictions: Please present immediately to [facility]. They are expecting you to repair your open fracture of your great toe. Clinical Impressions Clinical Impression: Open fracture of toe of right foot Discharge ED Provider: Miki Fraser General Adult HPI General Chief complaint: PAIN Stated complaint: [id number] right big toe Time Seen by Provider: 12/02/22 16:44 Mode of Arrival: Ambulatory Source of Information: Patient Limitations: No Limitations Description of Symptoms (Recalled from ER Triage Doc. by RN): pt to ed c/o right great toe pain. pt states he got his toe caught under a door. History of Present Illness HPI narrative: Patient is a 32-year-old male with no pertinent past medical history presents emergency department for evaluation of traumatic injury sustained to right foot. Patient's toe was struck by a door at approximately 3:30 PM causing him to present here for continued evaluation. Last Tdap unknown. No other acute complaints at this time. Related Data Allergies Allergy/AdvReac Type Severity Reaction Status Date / Time morphine Allergy Mild Verified 11/29/22 14:11 [facility] Disclaimer: The information contained in this section may have been updated after the patient was seen, as this information can be updated by other users. Surgical History (Updated 11/29/22 @ 14:12 by RAFITA Virk) History of hernia surgery Social History Smoking Status: Current every day smoker tobacco type: cigarettes packs per day: 1 second hand exposure: No alcohol intake: never substance use type: denies use current occupational status: employed Travel in the last 8 weeks: None household members: family housing: house current occupational exposures/hazards: No caffeine: Yes ROS Obtained: Yes Systems reviewed as appropriate & no additional complaints except as documented Physical Exam General General appearance: alert and in no apparent distress Head Head exam: atraumatic and normocephalic Eye Eye exam: Present PERRL and EOMI ENT ENT exam: Present mucous membranes moist Neck Neck exam: Present normal inspection Chest Chest inspection: Present normal inspection and symmetric chest wall rise Respiratory Respiratory exam: Absent respiratory distress Cardiovascular Cardiovascular exam: Present regular rate and normal rhythm Extremities Exam Extremities exam: Present other (Elevated nail of the right great toe with oozing of blood, displacement of the great toe soft tissues, laceration over the medial aspect of the right great toe.) Neurological Exam Neurological exam: Present alert Psychiatric Psychiatric exam: Present normal affect Skin Skin exam: Present warm and dry Medical Decision Making Dante Inquiry Pt receiving controlled substance: No Vital Signs: 12/02/22 16:49 Temperature 98.1 F Temperature Source Oral Pulse Rate [Left Radial] 91 H Respiratory Rate 20 Blood Pressure [Right Arm] 134/75 Blood Pressure Mean [Right Arm] 94 02 Sat by Pulse Oximetry 99 Orders (Tests/Meds): ED MEDICATIONS Generic Name Dose Route Start Last Admin Trade Name Freq PRN Reason Stop Dose Admin Cefazolin Sodium 2 gm 12/02/22 18:29 Cefazolin 2gm Vial IM 12/02/22 18:30 ONCE ONE Discontinued Medications Generic Name Dose Route Start Last Admin Trade Name Freq PRN Reason Stop Dose Admin Tetanus/Reduced Diphtheria/Acell Pertussis 0.5 ml 12/02/22 17:39 12/02/22 1 7:58 Tet/Diphth/Pert-Adult 0.5ml Syringe IM 12/02/22 17:40 0.5 ml .ONCE ONE Administration ORDERS Category Date Time Status XR toe RT min 2V Stat Exams 12/02/22 16:49 Completed Medical Decision Narrative: In summary patient is a 32-year male with past medical history described above who presents emergency department for evaluation of traumatic injury sustained to his great toe. Differential includes fracture, nailbed laceration, among others given history and physical exam. Sensation is intact to light touch distally. Work-up will be conducted with plain films. Plain film informally interpreted by me, displaced tuft fracture, clinically fracture is open. Tdap will be administered. Ancef will be administered 2 g IM. Patient underwent digital block with exploration, distal phalanx is protruding through the nailbed. Was irrigated with 2 L sterile water. The case was discussed with [facility] Dr. Payne who graciously excepted patient for transfer to [facility] for complex repair at this time. Critical Care Critical Care Time Critical Care Time: No
[2022-12-02] MEDS: TET/DIPHTH/PERT-ADULT 0.5ML SYRINGE 0.5 ML IM (17:58)
--- NOTE | 2022-12-02 18:29 | PC.NURSE ---
calling for ed to ed transfer for repair
--- NOTE | 2022-12-02 18:34 | PC.NURSE ---
speaking with at [facility]
[2022-12-02] MEDS: CEFAZOLIN 2GM VIAL 2 GM IM (18:43)
[2022-12-02 19:08] VITALS: BP 129/82; PULSE 98; RESP 14; TEMP 37.1; O2SAT 98
== END 2022-12-02 19:10 | disposition home or self-care (01) ==
PROVIDERS: Emergency Provider Emergency Medicine; PCP Emergency Medicine
DX: S92.911B Unspecified fracture of right toe(s), initial encounter for open fracture (principal); F17.210 Nicotine dependence, cigarettes, uncomplicated; W22.8XXA Striking against or struck by other objects, initial encounter; Z23 Encounter for immunization
CPT/HCPCS: 73660; 90471; 90715; 96372; 99283; 99285; J0690

== ENCOUNTER 2024-06-20 07:08 | Emergency (ER) | payer MEDICARE, SELFPAY ==
--- NOTE | 2024-06-20 07:12 | ECG_ITS ---
APPROVED REPORT Exam: Resting ECG HR:69 bpm ECG Measurements Heart Rate 69 AXES IA 128 P 45 QRSd 104 QRS 83 QT 418 T 62 QTc 437 Conclusion SINUS RHYTHM NORMAL ECG Electronically signed by : ANTONETTE TIRADO, 06/21/2024 06:55:20
[2024-06-20 07:17] VITALS: BP 129/84; PULSE 84; RESP 18; TEMP 36.7; O2SAT 96; BMI 24.4
--- NOTE | 2024-06-20 07:22 | HMH.EDGENADL ---
Discharge Plan Disposition Patient Disposition: Home, Self-Care Condition: Good Chief Complaint: Allergic Reaction Prescriptions Prescriptions: New epinephrine [EpiPen] 0.3 mg/0.3 mL auto-injector 0.3 mg IM Q10M PRN (Reason: anaphylaxis) Qty: 1 0RF Rx Instructions: for 2 doses. If you end up having to use your EpiPen please call 911 and go to the emergency room for evaluation. Referrals Follow up/Referrals: Provider,Referral, MD [Primary Care Provider] - See instructions Clinical Impressions Clinical Impression: Allergic reaction, Urticaria Print Language Print Language: Bruneian Discharge ED Provider: Hubert Stoddard General Adult HPI General Chief complaint: Allergic Reaction Stated complaint: poss. allergic reaction Time Seen by Provider: 06/20/24 07:12 Mode of Arrival: Ambulatory Source of Information: Patient Description of Symptoms (Recalled from ER Triage Doc. by RN): Patient reports waking up this morning with numbness of his lip, chest tightness, and itchy hands. States he thinks he is having an allergic reaction. History of Present Illness HPI narrative: 33-year-old male presents to ED with multiple complaints including itchy hands, itchy right foot and distal right leg. Patient states that he thinks he is having allergic reaction. Denies significant past medical history. Patient has an allergy to morphine, denies history of asthma or other daily medications that he may take. States he has no known new exposures except for some fake worms which he describes as rubber plastic. He touched them last night went to bed after washing his hands. Woke up this morning with itching of his hands, right foot, left-sided lip. Denies other symptoms or concerns however states he does feel like he has some slight tightness on his chest. Denies shortness of breath, chest pain, nausea, vomiting, any other symptoms concerns at this time. Patient has reddish appearance to his skin however states he is sunburned. Please note that above description of symptoms, in this electronic medical record under categorization of recalled from ER triage doctor by RN are reflective of an initial nursing assessment, however, is not reflective of my full history and physical exam that was personally taken and clarified. Consequentially, this preceding description of symptoms, which may include the patient's categorized chief complaint in the EMR, do not reflect my personal clinical impression, and the ultimate description of history of present illness and patient stated complaints should be deferred to this section of the note. Unless stated otherwise or congruent with this section of the note, additional signs, symptoms, or incongruence should be interpreted as inaccurate with my clinical impression. Related Data Previous Rx's ?Medication ?Instructions ?Recorded epinephrine 0.3 mg/0.3 mL 0.3 mg (0.3 mL) IM Q10M PRN 06/20/24 injection, auto-injector (EpiPen) anaphylaxis #1 ea Allergies Allergy/AdvReac Type Severity Reaction Status Date / Time morphine Allergy Mild Anaphylaxis Verified 06/20/24 07:42 bee venom protein (honey bee) Allergy Anaphylaxis Verified 06/20/24 07:42 [facility] Disclaimer: The information contained in this section may have been updated after the patient was seen, as this information can be updated by other users. Surgical History (Updated 11/29/22 @ 14:12 by RAFITA Virk) History of hernia surgery Social History Smoking Status: Current every day smoker tobacco type: cigarettes packs per day: 1 second hand exposure: No alcohol intake: never substance use type: denies use current occupational status: employed Travel in the last 8 weeks?: None household members: family housing: house current occupational exposures/hazards: No caffeine: Yes Have you lived/traveled outside [place] in past 30 days?: No Contact w/someone who lives/traveled outside [place] past 30 days?: No Exposure to someone with infectious disease in past 14 days?: No Do you have a fever (greater than 100.4 F or 38 C)?: No Have you tested positive for COVID-19?: No Exposed to someone with COVID-19 in past 14 days?: No Do you have a sore throat?: No Do you have a cough?: No Do you have any weakness?: No Do you have any diarrhea?: No Are you experiencing any unusual bleeding?: No Do you have any muscle aches/pain?: No Do you have any abdominal pain?: No Are you experiencing loss of taste or smell?: No Other Medical History Have you received the Flu Vaccine for this season: No Have you received the Pneumonia Vaccine: No ROS Obtained: Yes Systems reviewed as appropriate & no additional complaints except as documented Physical Exam General General appearance: alert and in no apparent distress Head Head exam: atraumatic, normocephalic and normal inspection Eye Eye exam: Present normal appearance, PERRL and EOMI ENT ENT exam: Present normal exam, normal oropharynx, mucous membranes moist, TM's normal bilaterally and normal external ear exam Neck Neck exam: Present normal inspection, full ROM and trachea midline; Absent meningismus or lymphadenopathy Chest Chest inspection: Present normal inspection and symmetric chest wall rise; Absent tenderness Respiratory Respiratory exam: Present normal lung sounds bilaterally; Absent respiratory distress Cardiovascular Cardiovascular exam: Present regular rate and normal rhythm; Absent JVD Abdominal Exam Abdominal exam: Present soft and normal bowel sounds; Absent distention, tenderness or guarding Extremities Exam Extremities exam: Present normal inspection, full ROM and normal capillary refill; Absent calf tenderness Back Exam Back exam: Present normal inspection Neurological Exam Neurological exam: Present alert and oriented X3 Psychiatric Psychiatric exam: Present normal affect and normal mood Skin Skin exam: Present warm, dry, intact and normal color Lymphatic Lymphatic Findings: no adenopathy Medical Decision Making Medical Records Medical records reviewed: Yes I reviewed the patient's medical records. Screening: Per USPSTF and CDC recommendations, given the prevalence of disease in our region, it is our hospital?s policy to screen for HIV and viral Hepatitis for all patients aged 18 and over and those with ongoing risk factors. Dante Inquiry Pt receiving controlled substance: No Dante was queried for this patient: No Vital Signs: 06/20/24 07:17 06/20/24 07:30 Temperature 98.1 F Temperature Source Oral Pulse Rate 66 Pulse Rate [Radial] 84 Respiratory Rate 18 Blood Pressure 122/73 Blood Pressure [Right Arm] 129/84 Blood Pressure Mean [Right Arm] 99 Blood Pressure Source [Right Arm] Automatic Cuff Blood Pressure Position [Right Arm] Sitting 02 Sat by Pulse Oximetry 96 97 Oxygen Delivery Method Room Air Room Air Lab Data Lab Results 06/20/24 07:20: Sodium 142, Potassium 3.6, Chloride 112 H, Carbon Dioxide 20 L, Anion Gap 13.6, BUN 17, Creatinine 0.90, Estimated Creat Clear 136, Estimated GFR 96, Est GFR ( Amer) 116, Glucose 173 H, Calcium 8.9, Troponin I < 0.01 06/20/24 07:20 Orders (Tests/Meds): ED MEDICATIONS Generic Name Dose Route Start Last Admin Trade Name Freq PRN Reason Stop Dose Admin Sodium Chloride 8 ml 06/20/24 07:12 Sodium Chloride 0.9% 10ml Vial IV 07/20/24 07:11 NEEDED PRN dilute pepcid Sodium Chloride 10 ml 06/20/24 07:12 Sodium Chloride 0.9% 10ml Flush Syringe IV 07/20/24 07:11 NEEDED PRN Maintain IV Site Discontinued Medications Generic Name Dose Route Start Last Admin Trade Name Freq PRN Reason Stop Dose Admin Diphenhydramine HCl 50 mg 06/20/24 07:12 06/20/24 07:29 Diphenhydramine 50mg/Ml Vial IV 06/20/24 07:13 50 mg ONCE ONE Administration Famotidine 40 mg 06/20/24 07:12 06/20/24 07:28 Famotidine 20mg/2ml Vial IV 06/20/24 07:13 40 mg ONCE ONE Administration Methylprednisolone Sodium Succinate 125 mg 06/20/24 07:17 06/20/24 07:28 Methylprednisolone Sod Succ 125mg Vial IV 06/20/24 07:18 125 mg ONCE ONE Administration ORDERS Category Date Time Status Basic Metabolic Panel Stat Lab 06/20/24 07:20 Completed HIV Combo Stat Lab 06/20/24 07:20 Received Hepatitis C Ab Qual. W/ RFX Stat Lab 06/20/24 07:20 Received Troponin I Q3H Lab 06/20/24 07:20 Completed Troponin I Q3H Lab 06/20/24 10:30 Ordered ECG Data Tracing #1: I reviewed this ECG and interpreted as documented below: History normal sinus rhythm, normal axis, normal intervals, no noted ST elevation or otherwise noted ectopy ECG initial impression date: 06/20/24 ECG initial impression time: 07:20 Medical Decision Narrative: Patient with history and exam per above presenting for evaluation of urticaria. Patient is a 33-year-old male who denies significant past medical history presented with presumed allergic reaction. No known new exposures however last night patient was messing with a newer synthetic warm that has an old wheal on its surface. Patient believes that he may be allergic to this. Complaining of itching to his hands, right lower extremity and his left sided lip. Denies any difficulty with breathing, nausea, vomiting, other symptoms beyond self-described chest tightness without pain. Diagnoses considered include allergic reaction, anaphylaxis, angioedema, anxiety, ACS, among others ED workup and treatment included: As above. As above EKG without ischemic changes or otherwise noted ectopy, reassuring EKG. Patient given Benadryl, Pepcid, Solu-Medrol. Of note in further talking with patient he now states that he has an allergy to morphine and bee venom. Has had an EpiPen in the past due to bee venom but has not had one in several years. Patient further states he got a scorpion yesterday, has not been stung but was setting up its enclosure yesterday with materials that contained farah, also had a new shirt from a friend yesterday. No specific item from these exposures led to an immediate reaction. Labs were independently interpreted by me, significant for no acute actionable electrolyte abnormalities on BMP. Trop negative. My clinical impression at this time is most consistent with allergic reaction, urticaria. On reassessment patient remains hemodynamically stable, well-appearing, no acute distress. Symptoms have resolved. Medically cleared for discharge with outpatient follow-up. Prescribing EpiPen as patient does not have one currently. Patient to follow-up with primary care provider. Given strict return precautions to return to ED if symptoms worsen. Discharged home with hemodynamically stable vitals. I discussed my clinical impression with patient and answered all questions. At this time, the evidence for any other entities in the differential is insufficient to warrant any further testing or ED observation. This was explained to the patient. The patient was advised that persistent or worsening symptoms require further evaluation. Critical Care Critical Care Time Critical Care Time: No
[2024-06-20] MEDS: FAMOTIDINE 20MG/2ML VIAL 40 MG IV (07:28)
[2024-06-20] MEDS: METHYLPREDNISOLONE SOD SUCC 125MG VIAL 125 MG IV (07:28)
[2024-06-20] MEDS: diphenhydrAMINE 50MG/ML VIAL 50 MG IV (07:29)
[2024-06-20 07:30] VITALS: BP 122/73; PULSE 66; O2SAT 97
[2024-06-20 07:38] LABS: Chloride 112 mmol/L (98-107); Potassium 3.6 mmoL/L (3.5-5.1); Sodium 142 mmol/L (136-145)
[2024-06-20 07:41] LABS: Anion Gap 13.6 mEq/L (5-15); Blood Urea Nitrogen 17 mg/dl (9-20); Calcium 8.9 mg/dl (8.4-10.2); Carbon Dioxide 20 mmol/L (22.0-30.0); Creatinine Clearance Estimated 136 mL/min (50-200); Estimated Glomerular Filt Rate 96 ml/min (>60); GFR (African American) 116 ML/MIN (>60); Glucose 173 mg/dl (74-100)
[2024-06-20 08:00] VITALS: BP 125/82; PULSE 71; O2SAT 98
[2024-06-20 08:05] LABS: Troponin I < 0.01 ng/ml (0.00-0.034)
[2024-06-20 08:30] VITALS: BP 116/73; PULSE 65; O2SAT 96
[2024-06-20 08:50] VITALS: BP 116/73; PULSE 81; RESP 18; TEMP 37.1; O2SAT 98
[2024-06-20 09:12] LABS: HIV Combo NEGATIVE (Negative)
[2024-06-20 09:19] LABS: Hepatitis C Ab Qual. W/ RFX NEGATIVE (Negative)
== END 2024-06-20 08:51 | disposition home or self-care (01) ==
PROVIDERS: Emergency Provider Student in an Organized Health Care Education/Training Program
DX: L50.0 Allergic urticaria (principal); Z11.59 Encounter for screening for other viral diseases; Z11.4 Encounter for screening for human immunodeficiency virus [HIV]
CPT/HCPCS: 80048; 84484; 86803; 87389; 93005; 96374; 96375; 99284; J1200; J2919

== ENCOUNTER 2024-08-19 09:54 | Outpatient (CLI) | payer MEDICARE, SELFPAY ==
--- NOTE | 2024-08-19 10:16 | XR_ITS ---
FINAL REPORT CLINICAL HISTORY: LBP chronic back pain FINDINGS: LUMBAR SPINE Three views were obtained. There is no acute fracture. There is moderate disc space narrowing at L5-S1 with endplate sclerosis. Facet hypertrophy is seen in the lower lumbar spine. There is no malalignment. IMPRESSION: Moderate degenerative disc disease at L5-S1. Reviewed, Interpreted and Dictated by Festus Kline MD Transcribed by Genesis Adkins Authenticated and [facility]
--- OUTSIDE RECORDS SUMMARY | 2024-08-19 10:27 | XMS_ITS | Data Portability ---
Author Organization [facility] Address [address] [place] [address] Assessment Encounter Date Assessment Date Assessment LastModified by Organization Details LastModified Time 05/13/2023 05/13/2023 Will call with lab results when available. Educated on s/s that indicate need for immediate evaluation in the ED. Patient verbalized understanding . RTO for new or worsening symptoms. [email or web address] Not available 05/13/2023 13:05:45 Plan of Treatment Reminders Order Date Submit Date Provider Last Modified By Organization Details Last Modified Time Details Appointments Follow Up 2024 09:40A Hedy Caldera APRN Not available Not available Not available Lab cobalamin and folate panel, serum 2024 025 [facility], [address], [address], [place], [address], 08/18/2024 16:36:13 vitamin D, 25-hydrox y, total, serum 2024 025 [facility], [address], [address] [address], [place], [address], 08/18/2024 16:36:14 magnesium , serum or plasma 2024 025 [facility], [address], [address] [address], [place], [address], 08/18/2024 16:36:14 CBC w/ auto diff 2024 025 [facility], [address], [address] [address], [place], [address], 08/18/2024 16:36:14 CMP, serum or plasma 2024 025 [facility], [address], [address] [address], [place], [address], 08/18/2024 16:36:13 HbA1c (hemoglob in A1c), blood 2024 025 [facility], [address], [address] [address], [place], [address], 08/18/2024 16:36:13 TSH + free T4, serum 2024 025 [facility], [address], [place] [address], [place], [address], 08/18/2024 16:36:14 RPR (rapid plasma reagin), serum 2023 024 [place], [address], [place] [address], [place], [address], 05/16/2023 06:37:39 chlamydia trachomat is + neisseria gonorrhoe ae + trichomon as vaginalis DNA panel, DEBBIE+probe , unspecifi ed specimen 2023 024 [place] [facility], [address], [address] [address], [place], [address], 05/16/2023 06:37:37 HIV 1 + 2, meaningfu l use set 2023 024 [facility], [address], [address] [address], [place], [address], 05/16/2023 06:37:40 Hepatitis C IgG Ab, qual, serum 2023 024 [facility], [address], [address] [address], [place], [address], 05/16/2023 06:37:38 urinalysi s, dipstick 2020 021 [email or web address] [facility], [address] [place] [address] , [place], [address], 06/01/2020 13:51:08 Referral general surgeon referral - needs an appt chelsy thanks! had right inguinal hernia repair as a child. this is on the left 2020 021 [facility], [address] [place] [address] , [address], [place], [address], 06/07/2020 14:27:22 Procedures None recorded. Surgeries None recorded. Imaging XR, lumbosacr al spine, 2 or 3 view 2024 025 [facility] ([facility]), [address] [place] [address] [address], [place], [address], 08/18/2024 16:51:21 Medication Orders None recorded. Patient TargetsNo targets recorded. Patient InstructionsNo instructions recorded. Reason for Referral General Surgeon Referral for Left inguinal hernia left inguinal hernia- reducable. pain daily. needs an appt chelsy thanks! had right inguinal hernia repair as a child. this is on the left Referring Physician: Shira Alanis, Family Medicine, Encounter Date: 06/01/2020 Results Created Date Observation Date Name Description Value Unit Range Abnormal Flag Note LastModifiedBy Organization Detail LastModifiedTime 06/02/1906/01/2020 urina lysis , dipst ick Leukocytes Negati ve Not Available [address] , [place], [address], 06/01/2020 13:13:19 06/02/19 21 06/01/2020 urina lysis , dipst ick Nitrite negati ve Not Available [address] , [place], [address], 06/01/2020 13:13:19 06/02/19 21 06/01/2020 urina lysis , dipst ick Urobilinogen .2 Not Available [address] , [place], [address], 06/01/2020 13:13:19 06/02/19 21 06/01/2020 urina lysis , dipst ick Protein Negati ve Not Available [address] , [place], [address], 06/01/2020 13:13:19 06/02/19 21 06/01/2020 urina lysis , dipst ick pH 5.5 Not Available [address] , [place], [address], 06/01/2020 13:13:19 06/02/19 21 06/01/2020 urina lysis , dipst ick Blood Negati ve Not Available [address] , [place], [address], 06/01/2020 13:13:19 06/02/19 21 06/01/2020 urina lysis , dipst ick Specific [place] 1.025 Not Available [address] , [place], [address], 06/01/2020 13:13:19 06/02/19 21 06/01/2020 urina lysis , dipst ick Ketone Negati ve Not Available [address] [place], [address], 06/01/2020 13:13:19 06/02/19 21 06/01/2020 urina lysis , dipst ick Bilirubin Negati ve Not Available [address] [place], [address], 06/01/2020 13:13:19 06/02/19 21 06/01/2020 urina lysis , dipst ick Glucose Negati ve Not Available [address] , [place], [address], 06/01/2020 13:13:19 06/02/19 21 06/01/2020 urina lysis , dipst ick Appearance Cloudy Not Available [address] , [place], [address], 06/01/2020 13:13:19 06/02/19 21 06/01/2020 urina lysis , dipst ick Color Dark Yellow Not Available [address] , [place], [address], 06/01/2020 13:13:19 05/14/19 24 05/16/2023 CT, NG, TRICH VAG BY DEBBIE chlamydia by DEBBIE Negati ve negati ve Not Available [facility] ([facility]) [address] [place], [address], 05/16/2023 06:37:37 05/14/19 24 05/16/2023 CT, NG, TRICH VAG BY DEBBIE gonococcus by DEBBIE Negati ve negati ve Not Available [facility] ([facility]) Formerly [facility] [place], [address], 05/16/2023 06:37:37 05/14/19 24 05/16/2023 CT, NG, TRICH VAG BY DEBBIE trich vag by DEBBIE Negati ve negati ve Not Available [facility] ([facility]) [address] [place], [address], 05/16/2023 06:37:37 05/14/19 24 05/15/2023 HCV ANTIB ALISHA RFX TO QUANT PCR HCV Ab Non Reacti ve non reacti ve Not Available [facility] ([facility]) [address] [facility], [place], [address], 05/16/2023 06:37:38 05/14/19 24 05/15/2023 HCV ANTIB ALISHA RFX TO QUANT PCR interpretati on: Commen t Not infec patti with HCV unles s early or acute infec tion is suspe cted (whic h may be delay ed in an immun ocomp romis ed indiv idual ), or other evide nce exist s to indic ate HCV infec tion. Not Available [facility] ([facility]) [address] [facility], [place], [address], 05/16/2023 06:37:38 05/14/19 24 05/15/2023 RPR, RFX QN RPR/C ONFIR M TP RPR Non Reacti ve non reacti ve Not Available [facility] ([facility]) [address] [facility], [place], [address], 05/16/2023 06:37:39 05/14/19 24 05/15/2023 HIV AB/P2 4 AG WITH REFLE X HIV Ab/P24 Ag screen Non Reacti ve non reacti ve HIV Negat tish HIV-1 /HIV- 2 antib odies and HIV-1 p24 antig en were NOT detec patti. There is no labor atory evide nce of HIV infec tion. Not Available [facility] ([facility]) [address] [facility], [place], [address], 05/16/2023 06:37:40 10/19/1910/18/2020 US, testi loreta No observ ation record ed. [address] (Scheduling) [address], [place], [address], 10/19/2020 14:16:52 Result Notes None recorded. Problems Name Problem SNOMED Code Status Onset Date Resolution Date Notes Provider Name and Address Organization Details Recorded Time Anxiety 76085667 Active 021 [place] - [facility] 06/01/2020 13:07:22 Problem Notes None recorded. Procedures Surgical History Date Name Laterality Status Provider Name and Address Organization Details Recorded Time Hydrocele Repair completed Jaki Estrada [place] - [facility] 06/01/2020 13:11:03 Tonsillectomy completed Jaki Estrada [place] - [facility] 06/01/2020 13:11:37 Imaging Results None recorded. Procedure Notes None recorded. Medical Equipment None Reported. Allergies Allergen ID Allergen Name Allergen Category Reaction Reaction Severity Criticality Documentation Date Start Date Code Code System Note Provider Name and Address Organization Details Recorded Time 574848 morphine medicatio n itching Not available Not available 06/01/2020 7052 RxNorm Jaki cruz, [place] - [facility] 13:06:50 Medications Name Sig Start Date Stop Date Status Note LastModified by Organization Details LastModified Time doxepin 50 mg capsule TAKE 1 CAPSULE BY MOUTH ONCE DAILY AT NIGHT AT BEDTIME DIRECTED 08/18 completed Not Available Not Available Not Available divalproex 250 mg tablet,omid yed release TAKE 1 TABLET BY MOUTH TWICE DAILY DIRECTED 08/18 completed Not Available Not Available Not Available hydroxyzine HCl 50 mg tablet TAKE 1 TABLET BY MOUTH THREE TIMES DAILY NEEDED 08/18 completed Not Available Not Available Not Available risperidone 2 mg tablet TAKE 1 TABLET BY MOUTH AT BEDTIME 06/01 completed Not Available Not Available Not Available lorazepam 0.5 mg tablet TAKE 1 TABLET BY MOUTH TWICE DAILY NEEDED 08/18 completed Not Available Not Available Not Available hydroxyzine HCl 25 mg tablet TAKE 1 TABLET BY MOUTH THREE TIMES DAILY NEEDED 08/18 completed Not Available Not Available Not Available epinephrine 0.3 mg/0.3 mL injection, auto-inject or INJECT CONTENTS OF 1 PEN NEEDED FOR ALLERGIC REACTION INTRAMUSC ULARLY EVERY 10 MINUTES NEEDED FOR ANAPLYLAX IS FOR 2 DOSES. IF YOU END UP HAVING TO USE YOUR EPIPEN. PLEASE CALL 911 AND GO TO THE EMERGENCY ROOM FOR EVALUATIO N. active Not Available Not Available No t Available bupropion HCl XL 300 mg 24 hr tablet, extended release TAKE 1 TABLET BY MOUTH ONCE DAILY IN THE MORNING DIRECTED 08/18 completed Not Available Not Available Not Available bupropion HCl XL 150 mg 24 hr tablet, extended release TAKE 1 TABLET BY MOUTH ONCE DAILY IN THE MORNING DIRECTED 08/18 completed Not Available Not Available Not Available Vraylar 1.5 mg capsule TAKE 1 CAPSULE BY MOUTH ONCE DAILY IN THE MORNING DIRECTED 08/18 completed Not Available Not Available Not Available Vraylar 3 mg capsule TAKE 1 CAPSULE BY MOUTH ONCE DAILY IN THE MORNING DIRECTED 08/18 completed Not Available Not Available Not Available Vitals Date Recorded Body weight Body mass index (BMI) Body height Body temperature Heart rate Oxygen saturation Oxygen saturation in Arterial blood by Pulse oximetry Respiratory rate Systolic And Diastolic Provider Name and Address Organization Details Last Updated DateTime 4 81086.9 5 g 24.1 kg/m2 182.88 cm 97.8 [degF] 109 /min 98 % 98 % 18 /min 120/82 mm[Hg] Tonia Salmon [place] - [facility] 4 11:54:37 Date Recorded Body weight Body mass index (BMI) Body height Heart rate Oxygen saturation Oxygen saturation in Arterial blood by Pulse oximetry Respiratory rate Systolic And Diastolic Provider Name and Address Organization Details Last Updated DateTime 1 15680.1 8 g 25.9 kg/m2 180.34 cm 88 /min 99 % 99 % 14 /min 140/78 mm[Hg] Jaki Estrada [place] - [facility] 1 13:04:53 Date Recorded Body height Body mass index (BMI) Body weight Body temperature Respiratory rate Oxygen saturation Oxygen saturation in Arterial blood by Pulse oximetry Heart rate Systolic And Diastolic Provider Name and Address Organization Details Last Updated DateTime 5 182.88 cm 26.7 kg/m2 22580.7 g 98.4 [degF] 18 /min 97 % 97 % 86 /min 118/76 mm[Hg] Libertad Mimi [place] - [facility] 5 15:55:35 Social History Question Answer Notes LastModified by Organizat ion Details LastModified Time Tobacco Smoking Status Current Every Day Smoker Jaki Estrada [facility], [place] - [facility] 06/01/2020 13:09:59 Do You Have An Advance Directive? No Information not available 08/18/2024 Are You Blind Or Do You Have Difficulty Seeing? No Information not available 08/18/2024 What Is Your Level Of Caffeine Consumption? Heavy Information not available 05/13/2023 Are You Deaf Or Do You Have Serious Difficulty Hearing? No Information not available 08/18/2024 What Type Of Diet Are You Following? REGULAR Information not available 08/18/2024 What Is The Highest Grade Or Level Of School You Have Completed Or The Highest Degree You Have Received? [id number] Information not available 08/18/2024 Have There Been Any Changes To Your Family Or Social Situation? No Information not available 08/18/2024 What Is The Fluoride Status Of Your Home? Unknown Information not available 08/18/2024 Live Alone Or With Others? With Others [email or web address] Information not available 06/01/2020 Do You Have A Medical Power Of Supervisor Cell Room? No Information not available 08/18/2024 What Was The Date Of Your Most Recent Tobacco Screening? 08/18/2024 Information not available 08/18/2024 What Is Your Current Pack Years? 20-29packye ars Information not available 05/13/2023 What Is Your Relationship Status? Single Information not available 08/18/2024 Do You Have Smoke And Carbon Monoxide Detectors In Your Home? Yes Information not available 08/18/2024 At What Age Did You Start Smoking Tobacco? [age] Per Patient Information not available 08/18/2024 How Much Tobacco Do You Smoke? 0.5 PPD Information not available 08/18/2024 Has Tobacco Cessation Counseling Been Provided? Yes Information not available 05/13/2023 On What Date Was Tobacco Cessation Counseling Provided? 05/13/2023 Information not available 05/13/2023 How Many Years Have You Smoked Tobacco? 20 Information not available 08/18/2024 Do You Have Difficulty Walking Or Climbing Stairs? No Information not available 08/18/2024 How Many Years Have You Used E-cigarettes Or Vape? 6 Stopped Feb 2024 Per Pt Information not available 08/18/2024 Sex: Male Functional Status Question Answer Note LastModified by Organizat ion Details LastModified Time How many times per week do you consume alcohol? Less than 1 time per week Information not available 05/13/2023 Do you or have you ever used smokeless tobacco? Never used smokeless tobacco Information not available 05/13/2023 Are you currently employed? No Information not available 06/01/2020 Do you have transportation difficulties? No Information not available 08/18/2024 Are you able to care for yourself? Yes [email or web address] Information n ot available 06/01/2020 Do you have difficulty dressing or bathing? No Information not available 08/18/2024 Do you or have you ever used e-cigarettes or vape? Former user of electronic cigarettes Information not available 08/18/2024 What is your exercise level? None Information not available 08/18/2024 Do you use any illicit or recreational drugs? No Information not available 05/13/2023 Do you or have you ever used any other forms of tobacco or nicotine? Yes Information not available 05/13/2023 What is your level of alcohol consumption? Occasional [email or web address] Information not available 06/01/2020 Are you able to walk? YESWOREST Information not available 06/01/2020 Do you have difficulty doing errands alone? No Information not available 08/18/2024 Mental Status Question Answer Note LastModified by Organizat ion Details LastModified Time Do you feel stressed (tense, restless, nervous, or anxious, or unable to sleep at night)? [id number] Information not available 08/18/2024 Do you have difficulty concentrating, remembering or making decisions? No Information no t available 08/18/2024 Family History Relationship Description Onset Age of this Age Resolved Age Notes LastModified by Organization Details LastModified Time Mother Depressive disorder [email or web address] Not available 06/01 13:08:32 Mother Thyroid atrophy [email or web address] Not available 06/01 13:08:50 Mother Arthritis [email or web address] Not availa ble 06/01/2020 13:08:57 Father Hypertensive disorder [email or web address] Not available 06/01 13:09:12 Sister Essential hypertension [email or web address] Not available 13:09:36 Medical History Condition Response Anxiety Disorder Y Immunizations Vaccine Type Date Status Note Provider Nam e and Address Organization Details Recorded Time MMR 1 completed Not Available [facility] 08/18/2024 15:23:35 Hep B, adolescent or pediatric 1 completed Not Available [facility] 08/18/2024 15:23:35 Hep B, adolescent or pediatric 2 completed Not Available [facility] 08/18/2024 15:23:35 Hep B, adolescent or pediatric 2 completed Not Available [facility] 08/18/2024 15:23:35 Td (adult), 2 Lf tetanus toxoid, preservative free, adsorbed 5 completed Not Available [facility] 08/18/2024 15:23:35 Tdap 3 completed Not Available [facility] 08/18/2024 15:23:35 Past Encounters Encounter ID Performer Location Encounter Start Date Encounter Closed Date Diagnosis/Indication Diagnosis SNOMED-CT Code Diagnosis ICD10 Code Diagnosis Note [id number] Shira Alanis APRN [address] [place] [address] 06/01/2020 12:23:22 06/01/2020 13:46:57 Body mass index 25-29 - overweight 061470815 Z68.25 25.9 Left inguinal hernia 236 793305 K40.90 - discussed ER evaluation for sudden pain that is nonrelenti ng as this is sign of strangulat ed hernia. - will refer to Dr Peters/Kevin metzger for considerat ion of surgical repair of his left inguinal hernia. Anxiety 63189903 F41.9 History of repair of inguinal hernia 760926955 Z98.890 - RIGHT SIDE. [id number] Ni Ramirez APRN [address] [place] [address] 05/13/2023 11:33:13 05/13/2023 12:24:38 Venereal disease screening 174829753 Z11.3 Vomiting 072459827 R11.1 0 [id number] Regine Caldera APRN [facility] [address] [place] [address] 08/18/2024 15:18:22 08/18/2024 16:51:20 Anxiety 32274460 F41.9 Low back pain 896610896 M54.50 Malaise and fatigue 2717 30862 R53.81 R53.83 Health Concerns Section Related Observation LastModified by Organization Detai ls LastModified Time None Recorded Concern Status LastModified by Organization Details LastModified Time None Recorded Advance Directives Directive N: Payers Insurance Date Sequence Insurance Name Policy Number Policy Fregoso Covered Member ID Fregoso Member ID Guarantor Name 05/13/2023 1 *SELF PAY* Sh amaya Cade 08/18/2024 [employer] [place] [place] [id number] [place]ARE[place] Elie Cade [id number] Elie Westfir 06/29/2023 2 UNSPECIFIED REMIT PAYOR Elie Westfir 08/18/2024 1 [employer] (MEDICARE REPLACEMENT/A DVANTAGE - HMO) Elie Cade [id number] Elie Westfir 08/17/2024 [place] Elie Cade [id number] Elie Cade 08/17/2024 2 [place] Elie Cade [id number] Elie Cade 08/17/2024 1 [place] PRIOR TO 2022 (MEDICAID REPLACEMENT - HMO) [place] Elie Westfir [id number] Elie Westfir Notes Date Note Type Note Provider Name and Address Organization Details Recorded Time 06/01/2020 text/html Lower Urinary Tr act Symptoms (LUTS)Reported bypatient.Location:le ft (testicle and radiates to LLQ abdomen) Quality:intermittent; spontaneous; not changing Severity:severe Onset/Timing:> 1 year Duration:sudden (almost every day, sometimes multiple times a day. varies in length- sometimes 10seconds, sometimes 2-3minutes.) Context:last surgery: (hydrocele repair) Associated Symptoms:no flank pain; no low back pain; no chills; no fever; no nausea; no vomiting; no temperaure; good force of stream; no straining; no post void dribbling; no hesitancy; empties well; no urgency; no frequency; no dysuria; no incontinence; no nocturia; no urine odor; no gross hematuria;abdominal pain(left lower quadrant);groin pain(left);constipati on(alternating);diarr hea Pt presents today with c/o of intermittent piercing pain in lower left quadrant, into left testicle.pt states this has lingered since he was 7 years old.Reports a history of hernia / hydrocele repair on the right as a child, doesnt remember when , but when he was really young. Shiraphan Alanis, TABLET TE[employer] [address], [place], [address], [place] - [facility] 06/01/2020 15:43:41 05/13/2023 text/html Patient presents for STI testing. Patient also reports episodes of vomiting after eating x 2 years. Patient reports symptoms began after he was incarcerated. Patient reports vomiting occurs after every meal. Patient reports daily bowel movements. Denies hematemesis, chest pain, SOA, fever, diarrhea, constipation. bloating, heartburn, genital lesions, urethral discharge, and dysuria. Ni Ramirez, TABLE[employer] [address], [place], [address], [place] - [facility] 06/10/2023 09:34:51 08/18/2024 text/html 33 year old male who presents to the office today with concerns oflower and middle back pain-- patient states ongoing pain for years, previously had injectionstakes advil on days that are the worst painhas concerns of feeling tired all the time--he does snore at timesstates he has trouble gripping/holding onto things at times in bilateral hands Regine Caldera, TABLET TE[employer] [address], [place], [address], [place] - [facility] 08/18/2024 16:37:17
--- OUTSIDE RECORDS SUMMARY | 2024-08-19 10:27 | XMS_ITS | Continuity of Care Document ---
Author Organization Neetu Gallagher [facility] Address [address] [place] [address] Assessment No assessment recorded. Plan of Treatment Reminders Order Date Submit Date Provider Last Modified By Organization Details Last Modified Time Details Appointments Follow Up 2024 09:40A Hedy Caldera APRN Not available Not available Not available Lab cobalamin and folate panel, serum 2024 025 [facility], [address], [address], [place], [address], 08/18/2024 16:36:13 vitamin D, 25-hydrox y, total, serum 2024 025 [facility], [address], [address], [place], [address], 08/18/2024 16:36:14 magnesium , serum or plasma 2024 025 [facility], [address], [address], [place], [address], 08/18/2024 16:36:14 CBC w/ auto diff 2024 025 [facility], [address], [address], [place], [address], 08/18/2024 16:36:14 CMP, serum or plasma 2024 025 [facility], [address], [address], [place], [address], 08/18/2024 16:36:13 HbA1c (hemoglob in A1c), blood 2024 025 [facility], [address], [address], [place], [id number], 08/18/2024 16:36:13 TSH + free T4, serum 2024 025 [facility], [address], [place], [id number], 08/18/2024 16:36:14 Referral None recorded. Procedures None recorded. Surgeries None recorded. Imaging XR, lumbosacr al spine, 2 or 3 view 2024 025 [email or web address] [facility] ([facility]), [address], [place], [place], [address], 08/18/2024 16:51:21 Medication Orders None recorded. Patient TargetsNo targets recorded. Patient InstructionsNo instructions recorded. Reason for Referral None Reported. Problems Name Problem SNOMED Code Status Onset Date Resolution Date Notes Provider Name and Address Organization Details Recorded Time Anxiety 26437258 Active 021 Jaki Estrada null, [place] - [facility] 06/01/2020 13:07:22 Problem Notes None recorded. Procedures Surgical History Date Name Laterality Status Provider Name and Address Organization Details Recorded Time Hydrocele Repair completed Jaki Estrada [place] - [facility] 06/01/2020 13:11:03 Tonsillectomy completed Jaki [place] - [facility] 06/01/2020 13:11:37 Imaging Results None recorded. Procedure Notes None recorded. Medical Equipment None Reported. Allergies Allergen ID Allergen Name Allergen Category Reaction Reaction Severity Criticality Documentation Date Start Date Code Code System Note Provider Name and Address Organization Details Recorded Time 346354 morphine medicatio n itching Not available Not available 06/01/2020 7052 RxNorm Jaki Estrada null, [place] - [facility] 13:06:50 Medications Name Sig Start [...] Available Not Available Vitals Date Recorded Body height Body mass index (BMI) Body weight Body temperature Respiratory rate Oxygen saturation Oxygen saturation in Arterial blood by Pulse oximetry Heart rate Systolic And Diastolic Provider Name and Address Organization Details Last Updated DateTime 5 182.88 cm 26.7 kg/m2 16339.7 g 98.4 [degF] 18 /min 97 % 97 % 86 /min 118/76 mm[Hg] Libertad Le [place] - [facility] 5 15:55:35 Social History Question Answer Notes LastModified by Organizat ion Details LastModified Time Tobacco Smoking Status Current Every Day Smoker Jaki Natalie cruz, [place] - [facility] 06/01/2020 13:09:59 Do You [...] Or The Highest Degree You Have Received? [id number] Information not available 08/18/2024 Have There Been Any Changes To Your Family Or Social Situation? No Information not available 08/18/2024 What Is The Fluoride Status Of Your Home? Unknown Information not available 08/18/2024 Live Alone Or With Others? With Others [email or web address] Information not available 06/01/2020 Do You Have A Medical Power Of Area Field Person? No Information not available 08/18/2024 What Was [...] available 05/13/2023 Are you currently employed? No [email or web address] Information not available 06/01/2020 Do you have transportation difficulties? No Information not available 08/18/2024 Are you able to care for yourself? Yes [email or web address] Information n ot available 06/01/2020 Do you [...] is your level of alcohol consumption? Occasional [email or web address] Information not available 06/01/2020 Are you able to walk? YESWOREST [email or web address] Information not available 06/01/2020 Do you have difficulty doing errands alone? No Information not available 08/18/2024 Mental Status Question Answer Note LastModified by Organizat ion Details LastModified Time Do you feel stressed (tense, restless, nervous, or anxious, or unable to sleep at night)? HC1200-0 Information not available 08/18/2024 Do you have difficulty concentrating, remembering or making decisions? No Information no t available 08/18/2024 Family History Relationship Description Onset Age of this Age Resolved Age Notes LastModified by Organization Details LastModified Time Mother Depressive disorder [email or web address] Not available 06/01 13:08:32 Mother Thyroid atrophy Not available 06/01 13:08:50 Mother Arthritis [email or web address] Not availa ble 06/01/2020 13:08:57 Father Hypertensive disorder [email or web address] Not available 06/01 13:09:12 Sister Essential hypertension [email or web address] Not available 13:09:36 Medical History Condition Response Anxiety Disorder Y Immunizations Vaccine Type Date Status Note Provider Nam e and Address Organization Details Recorded Time MMR 1 completed Not Available [facility] 08/18/2024 15:23:35 Hep B, adolescent or pediatric 1 completed Not Available [facility] 08/18/2024 15:23:35 Hep B, adolescent or pediatric 2 completed Not Available [facility] 08/18/2024 15:23:35 Hep B, adolescent or pediatric 2 completed Not Available On license of [facility] 08/18/2024 15:23:35 Td (adult), 2 Lf tetanus toxoid, preservative free, adsorbed 5 completed Not Available [facility] 08/18/2024 15:23:35 Tdap 3 completed Not Available [facility] 08/18/2024 15:23:35 Past Encounters Encounter ID Performer Location Encounter Start Date Encounter Closed Date Diagnosis/Indication Diagnosis SNOMED-CT Code Diagnosis ICD10 Code Diagnosis Note [id number] Regine Caldera APRN [address] [address] 08/18/2024 15:18:22 08/18/2024 16:51:20 Anxiety 49355296 F41.9 Low back pain 669849829 M54.50 Malaise and fatigue 2717 73235 R53.81 R53.83 Health Concerns Section Related Observation LastModified by Organization Detai ls LastModified Time None Recorded Concern Status LastModified by Organization Details LastModified Time None Recorded Payers Encounter Date Sequence Insurance Name Policy Number Policy Fregoso Covered Member ID Fregoso Member ID Guarantor Name 08/18/2024 1 [employer] (MEDICARE REPLACEMENT/ ADVANTAGE - HMO) Elie Mohamud [id number] Elie Mohamud Notes Date Note Type Note Provider Name and Address Organization Details Recorded Time 08/18/2024 text/html 33 year old male who presents to the office today with concerns oflower and middle back pain-- patient states ongoing pain for years, previously had injectionstakes advil on days that are the worst painhas concerns of feeling tired all the time--he does snore at timesstates he has trouble gripping/holding onto things at times in bilateral hands Regine Caldera, [employer] [address], [place], [address], [place] - [facility] 08/18/2024 16:37:17
--- OUTSIDE RECORDS SUMMARY | 2024-08-19 10:27 | XMS_ITS | Clinical Summary ---
Author Organization Healthcare Address [address] [id number] Care Team Providers Care Windows Systems Admin Name Role Phone Pcp, No Primary Care Provider Unavailabl e Allergies Active Allergy Reactions Criticality Noted Date Comments Morphine Unknown - Patient st ates they do not know rxn details Low 12/02/2022 Medications No known medications Immunizations Immunization Administration Dates Next Due Tdap 12/03/2022(Deferred: Patient Ref used - received at [facility]) Social History Tobacco Use Types Packs/Day Years Used Date Smoking Tobacco: Every Day Cigarettes Smokeless Tobacco: Current Chew Alcohol Use Standard Drinks/Week Comments Yes 0 (1 standard drink = 0.6 oz pur e alcohol) PHQ-2 Answer Date Recorded Patient Health Questionnaire-2 Score 0 12/10/2022 PHQ-2A Answer Date Recorded Patient Health Questionnaire-2 Score 0 12/10/2022 Sex and Gender Information Value Date Recorded Sex Assigned at Not on file Legal Sex Male 6:30 PM EDT Gender Identity Not on file Sexual Orientation Not on file Last Filed Vital Signs Vital Sign Reading Time Taken Comments Blood Pressure 123/82 12/10/2022 3:29 PM EDT Pulse 72 12/10/2022 3:29 PM EDT Temperature 36.7 C (98.1 F) 12/10/2022 3:29 PM EDT Respiratory Rate 16 12/03/2022 3:40 AM EDT Oxygen Saturation 98% 12/10/2022 3:29 PM EDT Inhaled Oxygen Concentration - - Weight 79.8 kg (176 lb) 12/10/2022 3:29 PM EDT Height 185.4 cm (6' 1 ) 12/10/2022 3:29 PM EDT Body Mass Index 23.22 12/10/2022 3:29 PM EDT Plan of Treatment Health Maintenance Due Date Last Done Comments [facility]-HIV Screening 1988 [facility]-Hepatitis C Screening 1988 [facility]-Medicare Annual Wellness (AWV) 1988 [facility]-/Child/Adol SDOH Screenings 1988 [facility]-Varicella Vaccines (1 of 2 - 13+ 2-dose series) 2001 HPV Vaccines (1 - Male 3-dose series) 11/19/2003 [facility]- SDOH Screenings 2006 [facility]-Adult SDOH Screenings 2006 [id number] Vaccine (1 - 2023- season) 2023 [facility]-Depression Screening 12/11/2023 12/10/2022 [facility]-Influenza Vaccine (Season Ended) 2024 [facility]-DTaP,Tdap,and Td Vaccines (3 - Td or Tdap) 12/02/2032 12/02/2022, 09/04/2004 [facility]-Zoster Vaccines (1 of 2) 2038 [facility]-Hepatitis B Vaccines Completed 002, 03/18/2001, 12/31/2000 [facility]-HIB Vaccines Aged Out No longer e ligible based on patient's age to complete this topic [facility]-Hepatitis A Vaccines Aged Out No longer eligible based on patient's age to complete this topic [facility]-IPV Vaccines Aged Out No longer e ligible based on patient's age to complete this topic [facility]-Pneumococcal Vaccine: Pediatrics (0 to 5 Years) and At-Risk Patients (6 to 49 Years) Aged Out No longer eligible b ased on patient's age to complete this topic [facility]-Rotavirus Vaccines Aged Out No lo nger eligible based on patient's age to complete this topic Insurance [employer] [facility] MEDICAID MEDICARE Care Teams Windows Systems Admin Relationship Specialty Start Date End Date Pcp, Yane [address] [place] [address] PCP - General Family Medicine 12/03/22
== END 2024-08-19 23:59 | disposition home or self-care (01) ==
PROVIDERS: PCP Nurse Practitioner Family; Visit Provider Nurse Practitioner Family
DX: M51.379 Other intervertebral disc degeneration, lumbosacral region without mention of lumbar back pain or lower extremity pain (principal)
CPT/HCPCS: 72100